=== PATIENT | female | born 1965 | race Caucasian/White ===

== ENCOUNTER 2017-06-14 19:07 | Emergency (ER) | payer OTHER ==
[~2017-06-14] VITALS: Ht 167.6 cm; Wt 88.7 kg
[~2017-06-14 19:07] MED LIST: CYCLOBENZAPRINE10 MG PO; FIORICET,ESG1 TABLET PO; FLUOXETINE HCL40 MG PO; KLONOPIN0.5 M1 PO; LISINOPRIL40 MG PO; LYRICA150 MG PO; METOPROLOL SUC100 MG PO
[2017-06-14 19:44] VITALS: BP 107/76
== END 2017-06-14 19:46 ==
LOC: EME → EDBD 19:07 → EME 19:07
DX: S93.401A Sprain of unspecified ligament of right ankle, initial encounter (principal); M79.672 Pain in left foot; M25.551 Pain in right hip; G89.29 Other chronic pain; S00.31XA Abrasion of nose, initial encounter; Y09 Assault by unspecified means; I10 Essential (primary) hypertension; I25.2 Old myocardial infarction; F17.200 Nicotine dependence, unspecified, uncomplicated
CPT/HCPCS: 99281; 99283

== ENCOUNTER 2017-09-07 12:26 | Observation (INO) | payer OTHER ==
[~2017-09-07] VITALS: Ht 167.6 cm; Wt 98.5 kg
[2017-09-07 13:19] LABS: HEMATOCRIT 44.6 % (36.0-46.0); MCHC 33.4 G/DL (30.0-36.0); MCV 92.7 FL (83-99); PLATELET COUNT 249 K/uL (156-360); RBC DIS.WIDTH-CV 13.4 % (11.8-14.6); RBC DIS.WIDTH-SD 46.1 % (39-53); RED BLOOD COUNT 4.81 M/uL (3.80-5.20); WHITE BLOOD COUNT 11.6 K/uL (4.1-10.2)
[2017-09-07 13:32] LABS: CHLORIDE 102 mEq/L (99-109); POTASSIUM 3.9 mEq/L (3.7-5.4); SODIUM 140 mEq/L (136-147)
[2017-09-07 13:34] LABS: GLUCOSE 130 mg/dL (70-99)
[2017-09-07 13:35] LABS: ANION GAP 15 MEQ/L (2-14)
[2017-09-07 13:38] LABS: GFR ESTIMATE (CALCULATED) 51 mL/min/
[2017-09-07 13:39] LABS: TROP-I INTERPRETATION NEGATIVE; TROPONIN-I 0.03 ng/mL (0.0-0.30); UREA NITROGEN (BUN) 19 mg/dL (9-23)
[2017-09-07 13:53] LABS: ADD MIUA? NO; BILIRUBIN NEGATIVE; BLOOD NEGATIVE; COLOR YELLOW ((YELLOW)); GLUCOSE (STRIP) NEGATIVE; KETONES NEGATIVE; LEUKOCYTES NEGATIVE; NITRITE NEGATIVE; PROTEIN (STRIP) NEGATIVE; SPECIFIC GRAVITY 1.006 (1.000-1.030); UROBILINOGEN 0.2 MG/DL (0.2-1.0)
[2017-09-07] MEDS ORDERED: FLUTICASONE P15.8 ML BOTH NARES (15:11)
[2017-09-07] MEDS ORDERED: BUSPAR30 MG PO (15:11)
[2017-09-07] MEDS ORDERED: IBUPROFEN800 MG PO (15:12)
[2017-09-07 16:53] VITALS: BP 125/90
[2017-09-07 19:15] LABS: TROP-I INTERPRETATION NEGATIVE; TROPONIN-I 0.02 ng/mL (0.0-0.30)
[2017-09-07 20:30] VITALS: BP 124/67
[2017-09-07 23:41] VITALS: BP 100/69
[2017-09-08 01:21] LABS: TROP-I INTERPRETATION NEGATIVE; TROPONIN-I 0.01 ng/mL (0.0-0.30)
[2017-09-08 03:33] VITALS: BP 107/68
[2017-09-08 09:32] VITALS: BP 117/70
[2017-09-08 11:21] VITALS: BP 138/88
== END 2017-09-08 15:04 | disposition left against medical advice (07) ==
LOC: EME 12:26 → RME 12:26 → EDOF 15:10 → 5WEST 15:10 → EDOF 15:10 → ENRESERV 15:13 → 5WEST 16:34
PROVIDERS: Physician Assistant; Student in an Organized Health Care Education/Training Program
DX: R07.9 Chest pain, unspecified (principal); F41.9 Anxiety disorder, unspecified; F32.9 Major depressive disorder, single episode, unspecified; Z53.20 Procedure and treatment not carried out because of patient's decision for unspecified reasons; I10 Essential (primary) hypertension; T46.5X6A Underdosing of other antihypertensive drugs, initial encounter; Z91.128 Patient's intentional underdosing of medication regimen for other reason; I45.10 Unspecified right bundle-branch block; G89.29 Other chronic pain; M79.7 Fibromyalgia; R10.32 Left lower quadrant pain; M79.605 Pain in left leg; M79.604 Pain in right leg; F17.210 Nicotine dependence, cigarettes, uncomplicated; Z66 Do not resuscitate; Z83.3 Family history of diabetes mellitus; Z82.5 Family history of asthma and other chronic lower respiratory diseases; Z82.49 Family history of ischemic heart disease and other diseases of the circulatory system
CPT/HCPCS: 71020; 74176; 80048; 81003; 84484; 85027; 93005; 99281; 99284; G0378; J7030